=== PATIENT | female | born 1985 | race Caucasian/White ===

== ENCOUNTER 2019-09-15 18:53 | Emergency (ER) | payer BC, OTHER ==
[2019-09-15] MEDS ORDERED: METOCLOPRAMIDE HCL INJ/PF 10 MG/2 ML SDV IV ONE (19:20)
[2019-09-15] MEDS ORDERED: DIPHENHYDRAMINE HCL 50 MG/ML VIAL IV ONE (19:20)
[2019-09-15] MEDS ORDERED: NORMAL SALINE 1000 ML 1,000 ML IV ONE (19:20)
--- NOTE | 2019-09-15 19:23 | ER Document Report ---
ED Medical Screen (RME) - General Chief Complaint: Nausea/Vomiting Stated Complaint: VOMITING Time Seen by Provider: 09/15/19 19:18 - HPI Notes: 09/15/19 19:32 34-year-old female to the emergency department with complaints of severe nausea and vomiting for the past several days that she cannot get under control. She states that she is about 16 weeks with her fourth . She states that she has had a confirmed IUP on ultrasound at about 5 weeks. She states that she went to the ER this morning and was given Zofran but she still has not been able to hold anything down. She denies any fevers or chills. She denies any vaginal bleeding. She states however when she vomits she urinates on herself but she is also not really sure if she is having any leakage from her vagina. She states that she had one spontaneous when she was younger and has 2 living children. Brief medical screening exam on the patient is determined she needs further management and evaluation by main side provider. I have ordered labs and medications for treatment purposes to expedite her care today. - Related Data Allergies/Adverse Reactions: No Known Allergies Allergy (Verified 09/15/19 19:24) Past Medical History - Immunizations Hx Diphtheria, Pertussis, Tetanus Vaccination: Yes - 2008 Physical Exam - Vital signs Vitals: Temp Pulse Resp BP Pulse Ox 98.6 F 127 H 18 119/71 96 09/15/19 19:18 09/15/19 19:18 09/15/19 19:18 09/15/19 19:18 09/15/19 19:18 Course - Vital Signs Vital signs: Temp Pulse Resp BP Pulse Ox 98.6 F 127 H 18 119/71 96 09/15/19 19:18 09/15/19 19:18 09/15/19 19:18 09/15/19 19:18 09/15/19 19:18
[2019-09-15 20:11] LABS: APPEARANCE,URINE SLIGHTLY-CLOUDY; BILIRUBIN,URINE NEGATIVE (NEGATIVE); COLOR,URINE YELLOW; GLUCOSE, URINE NEGATIVE (NEGATIVE); KETONES,URINE 80 mg/dL (NEGATIVE); PROTEIN,URINE 30 mg/dL (NEGATIVE); URINE SPECIFIC GRAVITY 1.023; UROBILINOGEN,URINE NEGATIVE mg/dL (<2.0)
[2019-09-15 20:14] LABS: HEMATOCRIT 37.4 % (36.0-47.0); MEAN CORPUSCULAR HEMOGLOBIN 30.8 pg (27.0-33.4); MEAN CORPUSCULAR HGB CONC 34.7 g/dL (32.0-36.0); MEAN CORPUSCULAR VOLUME 89 fl (80-97); RED BLOOD COUNT 4.22 10^6/uL (3.72-5.28); RED CELL DISTRIBUTION WIDTH 12.9 % (11.5-14.0); WHITE BLOOD COUNT 15.5 10^3/uL (4.0-10.5)
[2019-09-15] MEDS ORDERED: RINGERS SOLUTION,LACTATED 1,000 ML IV ONE (20:18)
--- NOTE | 2019-09-15 20:18 | ER Document Report ---
ED General - General Chief Complaint: Nausea/Vomiting Stated Complaint: VOMITING Time Seen by Provider: 09/15/19 19:18 TRAVEL OUTSIDE OF THE [place] IN LAST 30 DAYS: No - HPI Patient complains to provider of: vomiting/leaking fluid per vagina 16 weeks Notes: patient reports being approximately 16 weeks with 1 previous miscarriage as a teenager she has had difficulty w/ morning sickness but notes that vomiting had stopped for about 2 weeks now, patient states she had congestion that she thinks is exacerbating her nausea/vomiting no blood in emesis she presented to [facility] today and had a pelvic exam and was given rx for zofran, tylenol, and clotrimazole for a vaginal "fungal" infection she presented here because when she vomits she is having fluid per vagina and is concerned she is losing her baby no blood per vagina she is unsure if she feels the baby move as she's not consistently feeling movements yet - Related Data Allergies/Adverse Reactions: No Known Allergies Allergy (Verified 09/15/19 19:24) Past Medical History - Social History Smoking Status: Never Smoker Chew tobacco use (# tins/day): No Frequency of alcohol use: None Drug Abuse: None Family History: Reviewed & Not Pertinent Patient has suicidal ideation: No Patient has homicidal ideation: No - Immunizations Hx Diphtheria, Pertussis, Tetanus Vaccination: Yes - 2008 Review of Systems - Review of Systems Constitutional: No symptoms reported EENT: No symptoms reported Cardiovascular: No symptoms reported Respiratory: No symptoms reported Gastrointestinal: Vomiting Genitourinary: Other - fluid per vagina Female Genitourinary: See HPI Musculoskeletal: No symptoms reported Skin: No symptoms reported Hematologic/Lymphatic: No symptoms reported Neurological/Psychological: No symptoms reported Physical Exam - Vital signs Vitals: Temp Pulse Resp BP Pulse Ox 98.6 F 127 H 18 119/71 96 09/15/19 19:18 09/15/19 19:18 09/15/19 19:18 09/15/19 19:18 09/15/19 19:18 Interpretation: Normal - General General appearance: Appears well, Alert - HEENT Head: Normocephalic, Atraumatic Eyes: Normal Conjunctiva: Normal Pupils: PERRL Mouth/Lips: Normal Mucous membranes: Dry Pharynx: Normal Neck: Normal - Respiratory Respiratory status: No respiratory distress Chest status: Nontender Breath sounds: Normal Chest palpation: Normal - Cardiovascular Rhythm: Regular Heart sounds: Normal auscultation Murmur: No - Abdominal Inspection: Normal Distension: No distension Bowel sounds: Normal Tenderness: Nontender Organomegaly: No organomegaly - Back Back: Normal, Nontender - Extremities General upper extremity: Normal inspection, Nontender, Normal color, Normal ROM, Normal temperature General lower extremity: Normal inspection, Nontender, Normal color, Normal ROM, Normal temperature, Normal weight bearing. No: Shane's sign - Neurological Neuro grossly intact: Yes Cognition: Normal Orientation: AAOx4 Herndon Coma Scale Eye Opening: Spontaneous Herndon Coma Scale Verbal: Oriented Hern[place] Coma Scale Motor: Obeys Commands Brendan Coma Scale Total: 15 Speech: Normal Motor strength normal: LUE, RUE, LLE, RLE Sensory: Normal - Psychological Associated symptoms: Normal affect, Normal mood - Skin Skin Temperature: Warm Skin Moisture: Dry Skin Color: Normal Course - Re-evaluation Re-evalutation: 09/15/19 20:17 patient presents w/ nausea/vomiting and concern for vaginal fluid loss will hydrate, provide antiemetics, and check labs will also obtain us as patient is primarily concerned about amniotic fluid leak she understands that should she be leaking amniotic fluid that there would be nothing we could do intervention contreras to save the baby given earlier gestational period 09/15/19 22:25 patient's US is w/ normal FHT and amniotic fluid present hydrated and tolerating PO recommend outpt obgyn follow up - Vital Signs Vital signs: Temp Pulse Resp BP Pulse Ox 98.6 F 127 H 18 119/71 96 09/15/19 19:18 09/15/19 19:18 09/15/19 19:18 09/15/19 19:18 09/15/19 19:18 - Laboratory Result Diagrams: 09/15/19 19:58 09/15/19 19:58 Laboratory results interpreted by me: 09/15/19 09/15/19 09/15/19 19:50 19:58 19:58 WBC 15.5 H Seg Neuts % (Manual) 92 H Lymphocytes % (Manual) 3 L Abs Neuts (Manual) 14.3 H Beta HCG, Quant 39237.00 H Urine Protein 30 H Urine Ketones 80 H Leukocyte Esterase Rfl TRACE H - Diagnostic Test Radiology reviewed: Image reviewed, Reports reviewed Discharge - Discharge Clinical Impression: Hyperemesis gravidarum Condition: Stable Disposition: HOME, SELF-CARE Instructions: Antinausea Medication ([facility]), Reglan ([facility]) Additional Instructions: follow up with your obgyn as an outpatient return to the ED with worsening Prescriptions: Metoclopramide HCl [Reglan 10 mg Tablet] 10 mg PO ACHS #20 tablet
[2019-09-15 20:32] LABS: ABSOLUTE LYMPHOCYTES# (MANUAL) 0.5 10^3/uL (0.5-4.7); ABSOLUTE MONOCYTES # (MANUAL) 0.8 10^3/uL (0.1-1.4); BASOPHILS % (MANUAL) 0 % (0-2); EOSINOPHILS % (MANUAL) 0 % (0-6); LYMPHOCYTES % (MANUAL) 3 % (13-45); MONOCYTES % (MANUAL) 5 % (3-13); PLATELET CLUMPS PRESENT; PLATELET COMMENT ADEQUATE; RBC MORPHOLOGY COMMENT NORMO-CYTIC/CHROMIC; SEGMENTED NEUTROPHILS % (MAN) 92 % (42-78); TOTAL CELLS COUNTED 100
[2019-09-15 20:33] LABS: PLATELET COUNT 233 10^3/uL (150-450)
[2019-09-15 20:34] LABS: ALBUMIN 4.3 g/dL (3.5-5.0); ALKALINE PHOSPHATASE 66 U/L (38-126); ANION GAP 13 (5-19); ASPARTATE AMINO TRANSFERASE 25 U/L (14-36); BILIRUBIN,DIRECT 0.3 mg/dL (0.0-0.4); BILIRUBIN,TOTAL 1.2 mg/dL (0.2-1.3); BLOOD UREA NITROGEN 10 mg/dL (7-20); CALCIUM 9.4 mg/dL (8.4-10.2); CARBON DIOXIDE 22 mmol/L (22-30); CHLORIDE 102 mmol/L (98-107); GLUCOSE 98 mg/dL (75-110); POTASSIUM 3.7 mmol/L (3.6-5.0); TOTAL PROTEIN 7.3 g/dL (6.3-8.2)
--- NOTE | 2019-09-15 21:07 | RADIOLOGY REPORT (SQ) ---
EXAM DESCRIPTION: US FOLLOW UP COMPLETED DATE/TME: 09/15/2019 00:00 CLINICAL HISTORY: 34 years, Female, leaking fluid per vagina per patient Findings: Single viable IUP of 16 weeks and five days. Estimated weight one 45 g. Largest pocket of amniotic fluid is 4.3 cm. Placenta lies anteriorly. No evidence for abruption. Fetus in vertex presentation. heart rate preserved at 175 bpm. Cervix measures 2.2 cm in length. IMPRESSION: Single viable IUP of 16 weeks and five days with heart rate 175 bpm. Largest pocket of amniotic fluid is 4.3 cm.
[2019-09-15 22:54] VITALS: BP 102/59
== END 2019-09-15 22:54 | disposition home or self-care (01) ==
LOC: ER 18:53
DX: O21.9 Vomiting of pregnancy, unspecified (principal); Z3A.16 16 weeks gestation of pregnancy
CPT/HCPCS: 36415; 84702; 83690; 85025; 80053; 81001; 76805; 93976; J1200; J2765; J7030; J7120; 87086